=== PATIENT | female | born 1975 | race Caucasian/White ===

== ENCOUNTER 2019-02-14 15:36 | Outpatient (REF) | payer BC, SELFPAY ==
--- NOTE | 2019-02-14 15:30 | PAPFT_PTH ---
PATIENT: Brittany Gunn LOC: [facility] U#:[id number] AGE/SX: 43/F ROOM: RE02/14/[address]: KRISTAL Rojas : 1975 BED: DIS: 02/14/2019 SPEC #: [id number] RECD: 02/14/19 16:57 STATUS: DALJIT MCALLISTER #: [id number] MILLI: 02/14/19 15:[address]: Lexii Fuentes DEPT: [facility] Cytology RECD BY: Julianne Fisher ENTERED: 02/14/19 16:57 SP TYPE: PAPFT OTHR DR: Eda Clemons Tissues: 1 - CX/ENDOCX FOR PAP SMEARS Procedures: PAP THIN PREP/UVM Screening HPV DNA PROBE Comments: [id number]
== END 2019-02-14 15:56 ==
LOC: LBN 15:36
PROVIDERS: PCP Physician Assistant Medical; Visit Provider Nurse Practitioner Family
DX: Z12.4 Encounter for screening for malignant neoplasm of cervix (principal); Z11.51 Encounter for screening for human papillomavirus (HPV)
CPT/HCPCS: 88142; 87624

== ENCOUNTER 2019-02-14 15:42 | Outpatient (CLI) | payer BC, SELFPAY ==
[2019-02-14 17:17] LABS: TSH (W/Ref FT4) 1.02 uIU/mL (0.358-3.74)
== END 2019-02-14 16:02 ==
PROVIDERS: PCP Physician Assistant Medical; Visit Provider Nurse Practitioner Family
DX: N92.0 Excessive and frequent menstruation with regular cycle (principal)
CPT/HCPCS: 36415; 84443

== ENCOUNTER 2019-02-24 01:01 | Outpatient (CLI) | payer BC, SELFPAY ==
--- NOTE | 2019-02-24 06:39 | DI.US_ITS ---
SYMPTOM/DIAGNOSIS: MENORRHAGIA, DYSMENORRHEA N92.0 PELVIC ULTRASOUND: Transabdominal and transvaginal exams were performed. The exam is limited by the patient's body habitus. The uterus measures 6.8 x 3.7 x 5.6 cm. No fibroids are seen. The endometrial stripe measures 8 mm in thickness. Nabothian cysts are seen in the cervical region. The left ovary was not well seen but appears normal in size. A 2.1 cm in maximal dimension left ovarian cyst is identified. The right ovary is unremarkable. There is no free fluid or hydronephrosis. IMPRESSION: 2.1 cm left ovarian dominant follicle vs small cyst.
--- NOTE | 2019-02-24 11:30 | DI.MAMMO_ITS ---
SYMPTOM/DIAGNOSIS: SCREENING, Z12.31 MAMMOGRAMS: Mammograms were interpreted according to the usual protocol including computer analysis with CAD system, tomosynthesis and C view imaging. There are no prior comparison exams. The breasts are composed of fatty density tissue. Breast density, Category A. No suspicious masses or suspicious microcalcifications are seen. IMPRESSION: Category 1, negative mammogram. Yearly screening mammography is recommended. [facility] ASSESSMENT OF FINDINGS: Negative. Category 1. Patient will receive a letter notifying them of these results. BI-RAD category A. The breasts are almost entirely fatty.
== END 2019-02-24 01:21 ==
PROVIDERS: PCP Physician Assistant Medical; Visit Provider Nurse Practitioner Family
DX: Z12.31 Encounter for screening mammogram for malignant neoplasm of breast (principal); N92.0 Excessive and frequent menstruation with regular cycle; N94.6 Dysmenorrhea, unspecified; N83.292 Other ovarian cyst, left side
CPT/HCPCS: 77063; 77067; 76830; 76856

== ENCOUNTER 2019-10-21 12:43 | Outpatient (REF) | payer BC, SELFPAY ==
[2019-10-21 21:29] LABS: Anion Gap 10.9 mmol/L (3-11); BUN 6 mg/dL (7-18); CO2 26.1 mmol/L (21.0-32.0); CREATININE 0.79 mg/dL (0.55-1.02); Calcium 9.3 mg/dL (8.5-10.1); Chloride 104 mmol/L (98-107); Glucose 94 mg/dL (74-106); Potassium 4.8 mmol/L (3.5-5.1); Sodium 141 mmol/L (136-145)
== END 2019-10-21 13:03 ==
LOC: NCHCN 12:43
PROVIDERS: PCP Physician Assistant Medical; Visit Provider Physician Assistant Medical
DX: E87.6 Hypokalemia (principal); E87.1 Hypo-osmolality and hyponatremia
CPT/HCPCS: 80048

== ENCOUNTER 2019-10-21 22:18 | Observation (INO) | payer BC, SELFPAY ==
--- NOTE | 2019-10-21 22:31 | ED.GENADUL_ITS ---
Discharge Plan Disposition Patient Disposition: [facility] INPATIENT Condition: Poor Discharge Details Chief Complaint: PsychEval Clinical Impression: Suicidal ideations Primary Care Provider: Eda Clemons ED Provider: Valarie Somers Home Meds and New Rx's Prescriptions: No Action No Known Home Meds RF: 0 Medical Decision Making Patient is a pleasant 43-year-old female presents today with chief complaint of suicidal ideation. Patient reports that on September 19 of this year she witnessed a coworker suddenly from cardiac arrest. States that since that time she has progressively worsening in regards anxiety and depression. She denies having any anxiety or depression prior to this episode. Reports that initially, she was perseverating around thoughts of the woman passing away and gastroenterology not having been able to do more for her. However, she reports that now her thoughts are perseverative around the thoughts of herself or her family members dying. She states that she has not been able to sleep well since the time of the incident and is often awakened at 2 AM unable to go back to sleep. She has tried multiple medications as an outpatient and has been receiving counseling through primary care office. Despite this, her symptoms progressively worsening. She reports nonintentional weight loss of over 10 pounds over the past month reports greatly diminished appetite. States she was seen by her primary care this morning and they did discuss inpatient management. She was evaluated by [facility] human services. At that time, patient did not seem to be an imminent threat to herself and was discharged home with plan for her to begin trazodone at night to help with sleep. She is also tried Celexa and Ativan. On exam, patient does seem anxious. She seems to have overall good insight but I am concerned regarding her impulsivity. She is sounds to still be having thoughts of self-harm but she denies plan at this time. Patient also has progressively worsened to the point that she is now not able to function. She does not seem to find any flower in her life and I am concerned that she is at risk for suicide attempt. Patient was evaluated by mental health and they feel that inpatient admission is appropriate at this time for her progressive worsening with recent thoughts of suicidal ideation. Discussed inpatient management with the patient. She does seem very interested in this she has been failing outpatient management thus far. [facility], I did discuss the case with Dr. Miner who agrees to admission is asked that I place holding orders. Referrals have been sent to [facility] and [facility] which helps the patient will be able to transfer to appropriate facility tomorrow. All of her questions or concerns were addressed and she is in agreement this plan. HPI General Mode of arrival: ambulatory . Date/Time Provider Initiated Documentation: 10/21/19 22:31 . Limitations to Documentation: no limitations . Information obtained by: RN notes reviewed . History of Present Illness 43 year old F presents to the emergency department with the chief complaint of suicidal ideation, described as moderate (reports sudden onset of thoughts at 4PM, no plan), Patient started experiencing this hour(s) and it has been constant (improved somewhat with arrival here). No relieving factors improve symptom(s), No exacerbating factors reported . Patient notes no other symptoms.. Patient did receive the following treatments prior to arrival, other (took trazadone at 1999) Related Data Home Medications Medication Instructions Recorded Confirmed Unknown [No Known Home Meds] 02/14/19 10/21/19 Allergies Allergy/AdvReac Type Severity Reaction Status Date / Time No Known Allergies Allergy Verified 10/21/19 22:42 Review of Systems Constitutional Constitutional: Reports as per HPI, Denies chills, Denies fatigue, Denies fever(s), Denies headache(s) and Denies weakness Eyes Eyes: Denies change in vision ENT Ears, Nose, Mouth, and Throat: Denies headache(s) Cardiovascular Cardiovascular: Reports as per HPI, Denies chest pain, Denies lightheadedness, Denies dyspnea and Denies dyspnea on exertion Respiratory Respiratory: Reports as per HPI, Denies cough, Denies dyspnea and Denies dyspnea on exertion Gastrointestinal Gastrointestinal: Reports as per HPI, Denies abdominal pain, Denies change in bowel habits, Denies nausea and Denies vomiting Musculoskeletal Musculoskeletal: Denies abnormal gait Integumentary/Breasts Skin/Breast: Reports as per HPI and Denies rash Neurologic Neurologic: Denies abnormal movements, Denies abnormal speech, Denies abnormal gait, Denies headache(s), Denies paresthesias and Denies weakness Endocrine Endocrine: Denies fatigue [facility] Medical History Globus sensation (Acute 03/11/18) Obesity, unspecified (Acute 08/30/15) Surgical History section Cholecystectomy Social History (Updated 02/14/19 @ 15:42 by Lexii Fuentes NP) Smoking/Tobacco Use Status: Former Tobacco Use Quit Date: 09/10/19 Alcohol Intake: current Alcohol Intake frequency: a few times a month Drug use: Never Substance use type: marijuana current occupation: [employer] Do you feel safe at home: Yes Do you feel safe in your relationship?: Yes Exam Const General: cooperative, healthy appearing, comfortable, no acute distress, well developed, well groomed and anxious Nutritional Appearance: well nourished and overweight Orientation: alert and awake Eyes General: appearance normal, both eyes and all related structures Resp Effort & Inspection: normal respiratory effort, able to speak in complete sentences and no respiratory distress Auscultation: clear to auscultation bilaterally, no rales, no rhonchi and no wheezes Cardio Rate: regular rate Rhythm: regular rhythm Heart Sounds: S1 normal and S2 normal Skin General skin exam: no rashes or lesions noted Trauma: no lacerations or abrasions Neuro General: alert and awake Cognition: normal cognition Speech: speech normal Gait: normal gait Psych Appearance: grossly normal and well kempt Mental Status: mental status grossly normal Speech and Movement: speech and movement normal Mood: anxious mood Affect: sad Attitude: cooperative Thought Process: normal Thought Content: suicidality Insight: insight good Judgment: limited (patient seems impulsive)
[2019-10-21 23:23] VITALS: BP 122/82; PULSE 69; TEMP 37; O2SAT 99
[2019-10-21 23:38] LABS: Abs Immature Grans 0.02 k/cumm (0.0-0.09); Absolute Basophil Count 0.02 k/cumm (0.0-0.2); Absolute Eosinophil Count 0.05 k/cumm (0.0-0.7); Absolute Lymphocyte Count 2.66 k/cumm (1.2-3.4); Absolute Monocyte Count 0.64 k/cumm (0.11-0.7); Absolute Neutrophil Count 6.41 k/cumm (1.2-6.7); Basophils % 0.2; Eosinophils % 0.5; HCT 42.8 % (36.0-46.0); HGB 14.5 g/dL (12.0-15.5); Immature Grans % 0.2 %; Lymphocytes % 27.1; Mean Corp. HGB Concentration 33.9 g/dL (32.0-36.0); Mean Corpuscular Hemoglobin 29.4 pg (27.0-33.0); Mean Corpuscular Volume 86.8 fL (80-95); Mean Platelet Volume 11.4 fL (8.0-11.0); Monocytes % 6.5; Neutrophils % 65.5; Platelet Count 289 x1000/uL (130-400); RBC 4.93 m/cumm (4.00-5.20); RBC Distribution Width 12.8 % (11.7-14.6)
[2019-10-21 23:38] LABS: Bilirubin Negative (Negative); Blood Small (Negative); Clarity Clear (Clear); Glucose Negative (Negative); Ketones Negative (Negative); Leukocyte Esterase Negative (Negative); Nitrite Negative (Negative); Specific Gravity 1.015 (1.005-1.025); Urobilinogen 0.2 EU/dL (Up TO 0.2)
[2019-10-21 23:43] LABS: Bacteria Rare HPF (Negative); C & S Indicated? No; Casts Negative LPF (Negative); Crystals Negative HPF (Negative); Epithelial Cells Few HPF (Negative); Mucus Negative (Negative); WBC Negative HPF (0-5)
--- NOTE | 2019-10-21 23:44 | PDOC.CMSAFED ---
- If Service Date Differs Date of service: 10/21/19 Time of Service: 23:44 Care Management Safety Plan Brittany is a 43 year old female who resides with her and her teenage daughter. She works for [employer] where, on September 17, 2019, she witnessed the of one of her coworkers at work. Since then Brittany has struggled with perseverative thoughts about the and has felt as if she should have done more to try and save this coworker. Brittany reports difficulty sleeping at night, a lot of anxiety and fear of her family members dying, anhedonia, and a weight loss of 10 lbs over the past month or so. She sees a therapist at the [facility] and today her PCP started her on Trazodone. Brittany denies a history of suicidal ideation or psychiatric hospitalizations, but reports having suicidal thoughts this afternoon. She denies intent or plan. CM facilitated interdepartmental huddle with [facility] screener for safety planning considerations. Huddle participants: Elizabeth, [facility] crisis screeners, Valarie, ED provider, Ioana, nursing finishing room supervisor, CHARLES Rome, and DOTTY Logan. Referrals are being faxed to [facility], [facility], and [facility] for review and consideration. VOLUNTARY FOR INPATIENT PSYCHIATRIC STABILIZATION. Patient is appropriate in all interactions since arriving at [facility]; Pt has demonstrated appropriate coping and communication skills, has articulated his or her needs and concerns and is fully engaged during staff interactions. Safety plan has been established with patient, and care team, to adhere to patient goals, identify restrictions based on behavioral status, address nutrition, and determine allowed personal belongings, tools for hygiene and personal care. Determine level of activity including ambulation, level of supervision, visitors, and determine privileges based on behaviors and level of engagement by pt. SAFETY PLAN: 1. Will remain on suicide precautions. In Paper Clothes 2. Will remain in room under direct supervision of one-on-one staff at all times provided by [employer]; AVI, ERIC director of social services. 3. May have paper cups, plates, finger foods as well as a cardboard spoon with which to eat meals. 4. Follow [facility] Management of the Admitted Behavioral Health Patient policy. 5. Comfort bath system only. 6. No personal belongings 7. Visitors- and daughter are allowed to visit. 8. Activities: None currently. 9. Bathroom privileges 10. No phone privileges at this time. 11. Due to VOLUNTARY status, if patient wishes to leave [facility], the [facility] ammonia worker must be contacted to re-evaluate patient prior to patient exiting the building. Patient is currently voluntarily at [facility] and seeking inpatient admission when a bed becomes available. [facility] Frontline Financial Recruiter will continue seeking placement. Please contact the Software Test Engineer Water Pollution Specialist ([phone]) and [facility] Financial Recruiter ([phone]) for any needed changes in the Safety Plan. Safety plan has been provided to interdepartmental care team.
[2019-10-21 23:53] LABS: *AMPHETAMINES SCREEN URINE Negative (Negative); *BARBITURATES SCREEN URINE Negative (Negative); *BENZODIAZEPINES SCREEN URINE Negative (Negative); Cannabinoids THC Negative (Negative); Cocaine Screen,Urine Negative (Negative); METHADONE URINE SCREEN Negative (Negative); OPIATES URINE SCREEN Negative (Negative)
[2019-10-21 23:54] LABS: Tricyclic Antidepressants Negative (Negative)
[2019-10-21 23:55] LABS: Salicylate < 2.8 mg/dL (2.8-20.0)
[2019-10-21 23:58] LABS: Acetaminophen < 2 ug/mL (10-30)
[2019-10-21 23:59] LABS: ALT 15 U/L (14-59); AST 11 U/L (15-37); Albumin 3.7 g/dL (3.4-5.0); Alkaline Phosphatase 78 U/L (46-116); Anion Gap 12.8 mmol/L (3-11); BUN 6 mg/dL (7-18); Bilirubin, Total 0.5 mg/dL (0.2-1.0); CO2 23.2 mmol/L (21.0-32.0); CREATININE 0.81 mg/dL (0.55-1.02); Calcium 8.6 mg/dL (8.5-10.1); Chloride 103 mmol/L (98-107); ETHANOL BLOOD 6.3 mg/dL (<3); Glucose 105 mg/dL (74-106); Potassium 3.6 mmol/L (3.5-5.1); Sodium 139 mmol/L (136-145); TSH 0.63 uIU/mL (0.36-3.74); Total Protein 6.8 g/dL (6.4-8.2)
[2019-10-22 00:13] LABS: HCG Qual (Urine) Negative
[2019-10-22 00:16] VITALS: BP 122/82; PULSE 69; TEMP 37; O2SAT 99
[2019-10-22 00:36] VITALS: BP 111/76; PULSE 58; RESP 17; TEMP 36.9; O2SAT 100
--- NOTE | 2019-10-22 05:50 | W.PM.HP.N ---
Date of service: 10/22/19 Time of Service: 05:51 Assessment and Plan Assessment and plan (1) Suicidal ideations: Status: Acute Assessment and plan: Admitted for placement to a psychiatric facility. She has a clinical patient observer. She has a suicide plan. History of Present Illness History of Present Illness Chief Complaint: Suicidal ideation Narrative: This is a 43-year-old woman that presented to the emergency room today concerned about anxiety and contemplating suicide. On 09/19/2019 she witnessed a coworker passing away from a cardiac arrest. Since that time she has had progressively worsening anxiety and depression. In the emergency room she voiced suicidal ideation. She is agreed to voluntarily be placed in a psychiatric facility. She is admitted for placement. Review of Systems Narrative: She offers no physical complaints [facility] Medical History Globus sensation (Acute 03/11/18) Obesity, unspecified (Acute 08/30/15) Surgical History section Cholecystectomy Family History Father Heart disease Social History Smoking/Tobacco Use Status: Former Tobacco Use Quit Date: 09/10/19 Alcohol Intake: current Alcohol Intake frequency: a few times a month Drug use: Never Substance use type: marijuana current occupation: [employer] Do you feel safe at home: Yes Do you feel safe in your relationship?: Yes Meds Home Medications and Allergies Home Medications Medication Instructions Recorded Confirmed Type Unknown [No Known Home Meds] 02/14/19 10/21/19 History Allergies Allergy/AdvReac Type Severity Reaction Status Date / Time No Known Allergies Allergy Verified 10/21/19 22:42 Exam Narrative Exam Narrative: On exam she is very pleasant and smiling. She is appropriate and answers questions well. She is moving all extremities without difficulty. Her lung exam is clear to auscultation bilaterally. Her heart sounds are regular without evidence of murmur. She had no abdominal tenderness. Lower extremities showed no evidence of edema, warm and well perfused. Results Labs Result diagrams: 10/21/19 23:30 10/21/19 23:30 Labs: Laboratory Results - last 24 hr 10/21/19 10/21/19 10/21/19 22:30 22:30 23:30 WBC RBC Hgb Hct MCV MCH MCHC RDW Plt Count MPV Immature Gran % Neutrophils % Lymphocytes % Monocytes % Eosinophils % Basophils % Absolute Neutrophils Absolute Lymphocytes Absolute Monocytes Absolute Eosinophils Absolute Basophils Sodium 139 Potassium 3.6 D Chloride 103 Carbon Dioxide 23.2 Anion Gap 12.8 H BUN 6 L Creatinine 0.81 Estimated GFR/1.73 m2 >= 60.00 Glucose 105 Calcium 8.6 Total Bilirubin 0.5 AST 11 L ALT 15 Alkaline Phosphatase 78 Total Protein 6.8 Albumin 3.7 TSH 0.63 Urine Color Yellow Urine Clarity Clear Urine pH 6.0 Ur Specific [place] 1.015 Urine Protein Negative Urine Ketones Negative Urine Blood Small H Urine Nitrite Negative Urine Bilirubin Negative Urine Urobilinogen 0.2 Ur Leukocyte Esterase Negative Urine RBC 3-5 H Urine WBC Negative Ur Epithelial Cells Few Urine Crystals Negative Urine Bacteria Rare Urine Casts Negative Urine Mucus Negative Ur Culture Indicated? No Urine Glucose Negative Urine HCG, Qual Salicylates Urine Opiates Screen Negative Urine Methadone Screen Negative Acetaminophen Ur Barbiturates Screen Negative Ur Tricyclics Screen Negative Ur Amphetamines Screen Negative U Benzodiazepines Scrn Negative Urine Cocaine Screen Negative Ur THC Screen Negative Ethyl Alcohol 6.3 10/21/19 10/21/19 10/22/19 23:30 23:30 22:30 WBC 9.80 RBC 4.93 Hgb 14.5 Hct 42.8 MCV 86.8 MCH 29.4 MCHC 33.9 RDW 12.8 Plt Count 289 MPV 11.4 H Immature Gran % 0.2 Neutrophils % 65.5 Lymphocytes % 27.1 Monocytes % 6.5 Eosinophils % 0.5 Basophils % 0.2 Absolute Neutrophils 6.41 Absolute Lymphocytes 2.66 Absolute Monocytes 0.64 Absolute Eosinophils 0.05 Absolute Basophils 0.02 Sodium Potassium Chloride Carbon Dioxide Anion Gap BUN Creatinine Estimated GFR/1.73 m2 Glucose Calcium Total Bilirubin AST ALT Alkaline Phosphatase Total Protein Albumin TSH Urine Color Urine Clarity Urine pH Ur Specific [place] Urine Protein Urine Ketones Urine Blood Urine Nitrite Urine Bilirubin Urine Urobilinogen Ur Leukocyte Esterase Urine RBC Urine WBC Ur Epithelial Cells Urine Crystals Urine Bacteria Urine Casts Urine Mucus Ur Culture Indicated? Urine Glucose Urine HCG, Qual Negative Salicylates < 2.8 Urine Opiates Screen Urine Methadone Screen Acetaminophen < 2 Ur Barbiturates Screen Ur Tricyclics Screen Ur Amphetamines Screen U Benzodiazepines Scrn Urine Cocaine Screen Ur THC Screen Ethyl Alcohol Last Vital Signs Temp 36.9 C 10/22/19 00:36 Pulse 58 L 10/22/19 00:36 Resp 17 10/22/19 00:36 BP 111/76 10/22/19 00:36 Pulse Ox 100 10/22/19 00:36
[2019-10-22] MEDS: Mylanta Suspension 30 ML CUP PO (06:27)
[2019-10-22 08:28] VITALS: BP 122/86; PULSE 88; RESP 16; TEMP 37.1; O2SAT 99
--- NOTE | 2019-10-22 09:28 | PDOC.CMPRO ---
Care Management Progress Note Brittany is a 43 year old female who resides with her , Ras and her teenage daughter. She works for [employer] where, she witnessed the of one of her coworkers while working. Since then Brittany has struggled with pervasive thoughts about the and has felt as if she should have done more to try and save this coworker. Brittany reports difficulty sleeping at night, anxiety, fear of her family members dying, anhedonia, and a weight loss of 10 lbs over the past month or so. Referrals are being faxed to [facility], [facility], and [facility] for review and consideration. CM discussed care planning with Brittany, Maria Esther; RN, Candy; JUDAH, BEE Hdz and EUGENIA Gold. VOLUNTARY FOR INPATIENT PSYCHIATRIC STABILIZATION. Patient is appropriate in all interactions since arriving at [facility]; Pt has demonstrated appropriate coping and communication skills, has articulated his or her needs and concerns and is fully engaged during staff interactions. Safety plan has been established with patient, and care team, to adhere to patient goals, identify restrictions based on behavioral status, address nutrition, and determine allowed personal belongings, tools for hygiene and personal care. Determine level of activity including ambulation, level of supervision, visitors, and determine privileges based on behaviors and level of engagement by pt. SAFETY PLAN: 1. Will remain on suicide precautions. In Paper Clothes 2. Will remain in direct supervision of one-on-one staff at all times provided by [employer]PSO; AVI, FOUNDER AND CHIEF EXECUTIVE OFFICER gambling counsellor. 3. May have paper cups, plates, finger foods as well as a cardboard spoon with which to eat meals. 4. Follow [facility] Management of the Admitted Behavioral Health Patient policy. 5. Permitted to utilize shower room with escort. 6. No personal belongings 7. Visitors- Ras Gunn and daughter (16 yo) are allowed to visit. 8. Activities: soft cart items permitted per RN discretion. 9. Bathroom available in room without limitation. 10. Phone contact limited to legal and incoming calls on cordless facilitated by [facility] staff. Ras reports he will call around lunch time. 11. Due to VOLUNTARY status, if patient wishes to leave [facility], the [facility] fruit i farmworker must be contacted to re-evaluate patient prior to patient exiting the building. Patient is currently voluntarily at [facility] and seeking inpatient admission when a bed becomes available. [facility] Frontline Loan Servicing Officer will continue seeking placement. Please contact the [employer] Fun House Operator ([phone]) and [facility] Loan Servicing Officer ([phone]) for any needed changes in the Safety Plan. Safety plan has been provided to interdepartmental care team.
--- NOTE | 2019-10-22 10:28 | PDOC.MHCN_ITS ---
Mental Health Crisis Note Presenting Issue How did you arrive at the ED and why did you come: Clshania arrived at ER because of extreme anxiety, possible panic attack. Precipitating Factors Clt denies any SI or HI but these possible panic attacks cause her to have ex treme anxiety. The clt witnessed the of a friend and coworker. The coworker of a heart attack. The clt held her coworker's hand as she passed. Clt has feeling that she should've done more. I pointed out to her that she didn't know CPI but the clt did get help and returned to her friend's side. The clt had known the coworker for about 9yrs and considered her a friend. The clt has feeling of extreme dread that something bad will happen to her family members. The clt will feel like she is blanking out accompanied with a feeling of light-headedness. These attacks can come in a matter of of seconds and without warning. They are impacting negatively on her quality of life. Disposition BEHAVIOR: The clt's behavior is cooperative and engaged. EYE CONTACT: Eye contact is good. MOOD: The clt has a pleasant mood. AFFECT: Pleasant APPETITE: Good SLEEP(trouble falling/staying asleep: Serious deregulation regarding sleep. The clt has a hard time getting to sleep. She's fearful that something will happen to her family. Plan The clt is to get the clt to a therapeutic psych unit. Hopefully, a unit that has EMDR and CBT to assist her with processing this anxiety. She witnessed her coworker's heart attack at 10/06/2019, so it is still fairly fresh.
[2019-10-22] MEDS: LORazepam 1 MG TAB PO (10:56)
--- NOTE | 2019-10-22 13:16 | DSE_ITS ---
Date of service: 10/22/19 Time of Service: 13:16 DS: Diagnosis Discharge Diagnosis (1) Suicidal ideations: Status: Acute Discharge Plan Disposition Patient Disposition: [facility]NOTE 3] Condition: Poor Discharge Details Chief Complaint: PsychEval Clinical Impression: Suicidal ideations Reason For Visit: SUICIDAL IDEATION Admit Date/Time: 10/21/19 23:52 Admit Provider: Ras Miner Attending Provider: Ras Miner Primary Care Provider: Eda Clemons [facility] Hospital Course: This is a 43-year-old female patient with no significant past medical history who presented to the emergency department with severe anxiety/panic attacks depression with suicidal ideation 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 She has since complained of severe panic attacks with fears of harm to her family. She feels overwhelmed by her feelings she has no specific plan she was screened by mental health and has agreed to a voluntary inpatient psychiatric admission for management of her symptoms. Her primary care provider had started her on trazodone. Medically she has been cleared and was referred to the medical surgical unit while case management and mental health obtained a bed for her. Since being hospitalized she has been cooperative and pleasant. There have been no behavioral issues. A bed has been secured at [facility] and she is being transported by ground team. She has remained medically stable is hemodynamically stable and with no complaints physically Home Meds and New Rx's Prescriptions: No Action No Known Home Meds RF: 0 Discharge Instructions Instructions: Suicide Prevention for Adults (DC) Additional Instructions: Presented to [facility] as arranged for inpatient psychiatric treatment of major depression with suicidal ideation and panic disorder Activity:: Activity as Tolerated Equipment/Supplies:: No Equipment Needed Diet:: As Tolerated Discharge Orders Discharge Orders: Discharge Order (Routine); Ordered 10/22/19 Ordered By: Tiffany Kahn DS: Summary Status at Discharge Functional status at discharge: independent ambulation Overall status at discharge: patient is not back to baseline Mental Status: mental status grossly normal Speech and Movement: speech and movement normal Mood: congruent mood Affect: normal affect Exam Const General: cooperative, healthy appearing, comfortable and no acute distress Nutritional Appearance: obese Orientation: alert, awake and oriented x3 HENMT Head: normal to inspection, normocephalic and atraumatic Mouth: oral mucosae normal Resp Effort & Inspection: normal respiratory effort Auscultation: clear to auscultation bilaterally Cardio Rate: regular rate Rhythm: regular rhythm GI Inspection: normal to inspection Palpation: soft Auscultation: normal bowel sounds Skin General skin exam: no rashes or lesions noted Neuro General: alert, awake and oriented x3 Extrem General: normal to inspection and full ROM Psych Appearance: grossly normal Mental Status: mental status grossly normal Speech and Movement: speech and movement normal Mood: congruent mood Affect: normal affect Attitude: cooperative Thought Process: illogical Thought Content: phobias and suicidality Insight: fair Judgment: judgment good DS: Data Vitals/I&O Vitals and I&O: Vital Signs Temperature 37.1 C 10/22/19 08:28 Temperature Source Tympanic 10/22/19 08:28 Pulse 88 10/22/19 08:28 Pulse Rhythm Regular 10/22/19 07:25 Respiratory Rate 16 10/22/19 08:28 Respiratory Effort Non-Labored 10/22/19 07:25 Respiratory Depth Normal 10/22/19 07:25 Respiratory Pattern Normal 10/22/19 07:25 Blood Pressure 122/86 10/22/19 08:28 Pulse Oximetry 99 10/22/19 08:28 Oxygen Delivery Method Room Air 10/22/19 08:28 Oxygen Flow Rate 0 10/22/19 08:28 Pain Level 0 10/22/19 08:28 Intake & Output 10/21/19 10/22/19 10/22/19 23:59 11:59 23:59 Intake Total 240 / 240 Balance 240 / 240 Weight 109.769 kg Intake: Oral 240 / 240 Data Completed and Pending Labs on day of discharge: Labs from last 24 hours 10/22/19 10/21/19 10/21/19 22:30 23:30 23:30 WBC 9.80 RBC 4.93 Hgb 14.5 Hct 42.8 MCV 86.8 MCH 29.4 MCHC 33.9 RDW 12.8 Plt Count 289 MPV 11.4 H Immature Gran % 0.2 Neutrophils % 65.5 Lymphocytes % 27.1 Monocytes % 6.5 Eosinophils % 0.5 Basophils % 0.2 Absolute Neutrophils 6.41 Absolute Lymphocytes 2.66 Absolute Monocytes 0.64 Absolute Eosinophils 0.05 Absolute Basophils 0.02 Sodium Potassium Chloride Carbon Dioxide Anion Gap BUN Creatinine Estimated GFR/1.73 m2 Glucose Calcium Total Bilirubin AST ALT Alkaline Phosphatase Total Protein Albumin TSH Urine Color Urine Clarity Urine pH Ur Specific Sutton Urine Protein Urine Ketones Urine Blood Urine Nitrite Urine Bilirubin Urine Urobilinogen Ur Leukocyte Esterase Urine RBC Urine WBC Ur Epithelial Cells Urine Crystals Urine Bacteria Urine Casts Urine Mucus Ur Culture Indicated? Urine Glucose Urine HCG, Qual Negative Salicylates < 2.8 Urine Opiates Screen Urine Methadone Screen Acetaminophen < 2 Ur Barbiturates Screen Ur Tricyclics Screen Ur Amphetamines Screen U Benzodiazepines Scrn Urine Cocaine Screen Ur THC Screen Ethyl Alcohol 10/21/19 10/21/19 10/21/19 23:30 22:30 22:30 WBC RBC Hgb Hct MCV MCH MCHC RDW Plt Count MPV Immature Gran % Neutrophils % Lymphocytes % Monocytes % Eosinophils % Basophils % Absolute Neutrophils Absolute Lymphocytes Absolute Monocytes Absolute Eosinophils Absolute Basophils Sodium 139 Potassium 3.6 D Chloride 103 Carbon Dioxide 23.2 Anion Gap 12.8 H BUN 6 L Creatinine 0.81 Estimated GFR/1.73 m2 >= 60.00 Glucose 105 Calcium 8.6 Total Bilirubin 0.5 AST 11 L ALT 15 Alkaline Phosphatase 78 Total Protein 6.8 Albumin 3.7 TSH 0.63 Urine Color Yellow Urine Clarity Clear Urine pH 6.0 Ur Specific Sutton 1.015 Urine Protein Negative Urine Ketones Negative Urine Blood Small H Urine Nitrite Negative Urine Bilirubin Negative Urine Urobilinogen 0.2 Ur Leukocyte Esterase Negative Urine RBC 3-5 H Urine WBC Negative Ur Epithelial Cells Few Urine Crystals Negative Urine Bacteria Rare Urine Casts Negative Urine Mucus Negative Ur Culture Indicated? No Urine Glucose Negative Urine HCG, Qual Salicylates Urine Opiates Screen Negative Urine Methadone Screen Negative Acetaminophen Ur Barbiturates Screen Negative Ur Tricyclics Screen Negative Ur Amphetamines Screen Negative U Benzodiazepines Scrn Negative Urine Cocaine Screen Negative Ur THC Screen Negative Ethyl Alcohol 6.3 PFSH Medical History Globus sensation (Acute 03/11/18) Obesity, unspecified (Acute 08/30/15) Surgical History section Cholecystectomy Family History Father Heart disease Social History Smoking/Tobacco Use Status: Former Tobacco Use Quit Date: 09/10/19 Alcohol Intake: current Alcohol Intake frequency: a few times a month Drug use: Never Substance use type: marijuana current occupation: [employer] Do you feel safe at home: Yes Do you feel safe in your relationship?: Yes
--- NOTE | 2019-10-22 13:27 | NUR.NOTE ---
Nursing Note: Report given to nurse Williamson at [facility]. All questions answered
--- NOTE | 2019-10-22 14:32 | PDOC.CMDIS ---
LACE Index Scoring Tool - Questions: Length of Stay (in days): 1 Acuity (Admit via E.D.?): Yes E.D. 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 Patient/Family Education Needs: Review discharge instructions, discuss Ask Me Three. - MH Services (Omit if N/A) Current MH Services: Psychiatric Inp ([facility])
== END 2019-10-22 13:50 | disposition short-term general hospital (02) ==
LOC: ER 10-22 00:21 → MS 10-22 00:22
PROVIDERS: Admitting Provider Family Medicine; Emergency Provider Physician Assistant; PCP Physician Assistant Medical; Visit Provider Nurse Practitioner Acute Care
DX: F41.0 Panic disorder [episodic paroxysmal anxiety] (principal); R45.851 Suicidal ideations; F32.9 Major depressive disorder, single episode, unspecified; Z75.1 Person awaiting admission to adequate facility elsewhere
CPT/HCPCS: 36415; 80053; 80307; 99217; 99219; 99285; 80320; 80329; 81003; 81015; 81025; 84443; 85025; 99284; G0378

== ENCOUNTER 2020-06-23 16:07 | Outpatient (REF) | payer BC, SELFPAY ==
--- NOTE | 2020-06-23 16:00 | ENDOMET_PTH ---
PATIENT: Brittany Gunn LOC: [facility] U#:[id number] AGE/SX: 44/F ROOM: RE06/23/[address]: Yolande Price : 1975 BED: DIS: 06/23/2020 SPEC #: [id number] RECD: 06/23/20 17:04 STATUS: DALJIT REQ #: [id number] MILLI: 06/23/20 16:[address]: Yolande Price DEPT: Surgical Specimen RECD BY: Julianne Fisher ENTERED: 06/23/20 17:06 SP TYPE: Endomet OTHR DR: Eda Clemons Tissues: 1 - ENDOMETRIUM BX/SHANTELL Procedures: GROSS AND MICRO LEVEL 4 Comments: [id number]
== END 2020-06-23 16:27 ==
LOC: LBN 16:07
PROVIDERS: PCP Physician Assistant Medical; Visit Provider Obstetrics & Gynecology Gynecology
DX: N93.9 Abnormal uterine and vaginal bleeding, unspecified (principal)
CPT/HCPCS: 88305

== ENCOUNTER 2020-06-28 03:20 | Outpatient (CLI) | payer BC, SELFPAY ==
[2020-06-28 14:55] LABS: HCT 40.4 % (36.0-46.0); HGB 13.1 g/dL (11.2-15.7); MCH 29.2 pg (27.0-33.0); MCHC 32.4 % (32.0-36.0); MCV 90.2 fL (80-95); MPV 11.6 fL (8.0-11.0); Platelet Count 259 10^3/uL (130-400); RBC 4.48 10^6/uL (3.93-5.22); RDW 12.7 % (11.7-14.6); RDW-SD 42.2 fL; WBC 9.37 10^3/uL (4.4-10.8)
[2020-06-28 17:03] LABS: HCG Quant, Pregnancy < 1 mIU/mL (1-3)
[2020-06-30 18:01] LABS: COVID-19 RT-PCR Result NEGATIVE (Negative)
== END 2020-06-28 03:40 ==
PROVIDERS: PCP Physician Assistant Medical; Visit Provider Obstetrics & Gynecology Gynecology
DX: N93.9 Abnormal uterine and vaginal bleeding, unspecified (principal); Z11.59 Encounter for screening for other viral diseases; Z01.818 Encounter for other preprocedural examination; Z01.812 Encounter for preprocedural laboratory examination
CPT/HCPCS: 36415; 85027; 86850; 86900; 86901; U0003; 84702

== ENCOUNTER 2020-07-01 07:18 | Day surgery (SDC) | payer BC, SELFPAY ==
[2020-07-01] VITALS (7 sets, daily range): BP systolic 115–131; BP diastolic 63–83; PULSE 56–91; RESP 14–20; TEMP 36.1–36.9; O2SAT 96–99
[2020-07-01] MEDS: Lactated Ringers 1,000 ML 125 ML IV (08:09)
[2020-07-01] MEDS: Bupivacaine 0.25% Pres-Free 30 ML VIAL (09:14)
--- NOTE | 2020-07-01 10:11 | W.PM.DSUDISC ---
Discharge Plan Disposition Patient Disposition: HOME Condition: Good Discharge Details Attending Provider: Yolande Price Primary Care Provider: Eda Clemons Home Meds and New Rx's Prescriptions: No Action Probiotic 10 billion cell Capsule 10,000 mmu cells PO DAILY RF: 0 Discharge Instructions Additional Instructions: You will have watery discharge for the next 4 weeks. Keep your post operative appointment with Dr. Price at [facility] Stand Alone Forms: DSU Post Gynecology Surgery Activity:: Activity as Tolerated Diet:: As Tolerated Discharge Orders Discharge Orders: Discharge Order (Routine); Ordered 07/01/20 Ordered By: Yolande Price DS: Diagnosis Discharge Diagnosis (1) History of endometrial ablation: Status: Acute Asessment and Plan: 07/01/20 Hydrothermal endometrial ablation (2) Abnormal uterine bleeding (AUB): Status: Acute
--- NOTE | 2020-07-01 10:17 | W.PM.OP ---
Date of service: 07/01/20 Time of Service: 10:17 Operative Note Operative Note DATE OF PROCEDURE: 07/01/20 PRE-OP DIAGNOSIS: abnormal uterine bleeding POST-OP DIAGNOSIS: same PROCEDURE: Hydrothermal endometrial ablation SURGEON: Yolande Price ANESTHESIA: KIRAN ESTIMATED BLOOD LOSS: 0 PATHOLOGY: none sent COMPLICATIONS: None Patient was transported to: PACU Patient's condition: stable Indications: 44yo female who has experienced approximately a year of regular heavy monthly menses. She reports occasional dysmenorrhea associated with the passage of large clots and interference with activities of daily living. Declines hormonal treatment for menorrhagia. Not interested in a Mirena IUD. Findings: Nl appearing endometrial cavity, no intracavitary filling defects. Procedure Description: Patient was brought to the operating room where she was placed in the dorsal supine position and laryngeal mask anesthesia was administered without difficulty. Patient was then placed in the dorsal lithotomy position in [facility] stirrups. She was then prepped and draped in the usual sterile fashion and a surgical timeout was performed. A bivalve speculum was placed into the vagina and the anterior lip of the cervix was infiltrated with 1 cc of 0.25% Marcaine without epinephrine. The anterior lip of the cervix was then grasped with a single-tooth tenaculum and a paracervical block was then performed using approximately 2 cc of0.25% Marcaine without epinephrine. The cervical os was then sequentially dilated to a maximum of 16 Stephen. The hysteroscope with hydrothermal attachment was then inserted into the cervical os and the uterine cavity assessed with a diagnostic hysteroscopy using normal saline as the distention medium. An active cavity assessment was then performed and was successful and the had a thermal ablation sequence was initiated and completed in the allotted time. During the procedure the endometrial cavity was visualized and appeared to have good treatment effect. After a 2-minute cooling down interval another assessment of the uterine cavity showed excellent treatment effect in both uterine cornua and down to the lower uterine segment. The instruments removed the patient vagina tenaculum site was noted to be hemostatic. She was placed in the dorsal supine position successfully awakened extubated transferred recovery in stable condition
[2020-07-01] MEDS: oxyCODONE 5 mg/Acetaminophen 325 mg TAB PO ×2 (10:37→10:58)
== END 2020-07-01 11:50 | disposition home or self-care (01) ==
PROVIDERS: PCP Physician Assistant Medical; Visit Provider Obstetrics & Gynecology Gynecology
PROC: (CPT 58353; principal; 2020-07-01 08:45)
DX: N93.9 Abnormal uterine and vaginal bleeding, unspecified (principal)
CPT/HCPCS: 58563; J1100; J1885; J2001; J2405

== ENCOUNTER 2020-09-01 11:20 | Outpatient (REF) | payer BC, SELFPAY ==
[2020-09-01 20:47] LABS: ALT 27 U/L (14-59); AST 18 U/L (15-37); Albumin 3.8 g/dL (3.4-5.0); Alkaline Phosphatase 83 U/L (46-116); Anion Gap 5.7 mmol/L (3-11); BUN 14 mg/dL (7-18); Bilirubin, Total 0.4 mg/dL (0.2-1.0); CO2 28.3 mmol/L (21.0-32.0); Calcium 8.7 mg/dL (8.5-10.1); Calculated LDL 108 mg/dL (<100); Chloride 105 mmol/L (98-107); Cholesterol 201 mg/dL (<200); Glucose 92 mg/dL (74-106); HDL Cholesterol 74 mg/dL (40-60); Potassium 5.3 mmol/L (3.5-5.1); Sodium 139 mmol/L (136-145); Total Protein 6.6 g/dL (6.4-8.2); Triglyceride 95 mg/dL (<150)
== END 2020-09-01 11:40 ==
LOC: NCHCN 11:20
PROVIDERS: PCP Physician Assistant Medical; Visit Provider Physician Assistant Medical
DX: Z00.00 Encounter for general adult medical examination without abnormal findings (principal); Z13.220 Encounter for screening for lipoid disorders; Z13.228 Encounter for screening for other metabolic disorders
CPT/HCPCS: 80053; 80061

== ENCOUNTER 2020-10-15 19:46 | Outpatient (REF) | payer BC, SELFPAY ==
[2020-10-15 16:15] LABS: Hemoglobin A1C 5.5 % (<5.7)
[2020-10-15 16:22] LABS: TSH (W/Ref FT4) 0.72 uIU/mL (0.36-3.74)
== END 2020-10-15 19:47 | disposition home or self-care (01) ==
LOC: NCHCN 19:46
PROVIDERS: PCP Physician Assistant Medical; Visit Provider Physician Assistant Medical
DX: R63.5 Abnormal weight gain (principal)
CPT/HCPCS: 83036; 84443

== ENCOUNTER 2021-02-26 00:12 | Outpatient (CLI) | payer BC, SELFPAY ==
--- NOTE | 2021-02-25 | DI.RAD_ITS ---
Exam(s) XR LUMBAR SPINE COMPLETE EXAM: XR LUMBAR SPINE COMPLETE CLINICAL HISTORY: LOW BACK PAIN M54.5. TECHNIQUE: 2D digital imaging was performed. COMPARISON: No exams were available for comparison FINDINGS: There is no evidence of fracture nor listhesis. There is moderate disc space narrowing at at L2-3 an d L3-4 levels and mild disc space narrowing at the other levels. Small Schmorl's node invagination i n the inferior endplate of L2 is noted. There is no facet arthropathy. There is mild scoliosis conv ex left. Epicenter is at L3-4 level where there is more significant narrowing on the right side of t he disc space than the left side. Sacroiliac joints appear unremarkable. Signature IMPRESSION: DATA REPOSITORY: RADIATION DOSE DELIVERED:
== END 2021-02-26 00:32 ==
PROVIDERS: PCP Physician Assistant Medical; Visit Provider Physician Assistant Medical
DX: M54.5 Low back pain (principal); M51.36 Other intervertebral disc degeneration, lumbar region
CPT/HCPCS: 72110

== ENCOUNTER 2021-03-18 10:13 | Observation (INO) | payer BC, SELFPAY ==
[2021-03-18] VITALS (39 sets, daily range): BP systolic 110–148; BP diastolic 53–105; PULSE 55–92; RESP 10–22; TEMP 36.1–37; O2SAT 94–100
--- NOTE | 2021-03-18 10:15 | RT.EKG_ITS ---
APPROVED REPORT Exam: Resting ECG Reason for Exam: chest pain Patient Location: E HR:79 bpm ECG Measurements Heart Rate 79 AXIS IN 137 P 16 QRSd 81 QRS 54 QT 352 T 15 QTc 404 Conclusion Sinus rhythm...normal P axis, V-rate 60- 99 Anterior infarct, old...Q >40mS, abnormal ST-T, V2-V5
[2021-03-18 10:40] LABS: Abs Immature Grans 0.02 10^3/uL (0.0-0.06); Absolute Basophil Count 0.02 10^3/uL (0.0-0.2); Absolute Eosinophil Count 0.06 10^3/uL (0.0-0.7); Absolute Lymphocyte Count 1.62 10^3/uL (1.2-3.4); Absolute Monocyte Count 0.47 10^3/uL (0.1-0.8); Basophils % 0.3; Eosinophils % 0.8; HCT 41.8 % (36.0-46.0); HGB 13.5 g/dL (11.2-15.7); Immature Grans % 0.3; Lymphocytes % 20.3; MCH 29.2 pg (27.0-33.0); MCHC 32.3 % (32.0-36.0); MCV 90.5 fL (80-95); MPV 11.4 fL (8.0-11.0); Monocytes % 5.9; Neutrophils % 72.4; Nucleated RBC 0 %; Platelet Count 250 10^3/uL (130-400); RBC 4.62 10^6/uL (3.93-5.22); RDW 12.8 % (11.7-14.6); RDW-SD 42.3 fL; WBC 7.99 10^3/uL (4.4-10.8)
[2021-03-18] MEDS: FAMOTIDINE 20 MG/50 ML BAG 200 MG IVPB (10:43)
--- NOTE | 2021-03-18 10:45 | DI.RAD_ITS ---
Exam(s) XR CHEST 2V PA LATERAL EXAM: XR CHEST 2V PA LATERAL CLINICAL HISTORY: chest pain TECHNIQUE: 2D digital imaging was performed. COMPARISON: No exams were available for comparison FINDINGS: MEDIASTINUM: Normal. HEART: Normal. PULMONARY VASCULATURE: Normal. LUNGS: Clear. PLEURAL SPACE: No pleural effusion or pneumothorax. BONE:Unremarkable for age. IMPRESSION: No acute abnormality. DATA REPOSITORY: RADIATION DOSE DELIVERED:
--- NOTE | 2021-03-18 10:51 | ED.GENADUL_ITS ---
Discharge Plan Disposition Condition: Improving Discharge Details Chief Complaint: Chest Pain Admit Date/Time: 03/18/21 13:17 Admit Provider: Ras Miner Attending Provider: Ras Miner Primary Care Provider: Yue Johnson ED Provider: Adama Rubi Discharge Instructions Activity:: Activity as Tolerated Equipment/Supplies:: No Equipment Needed Diet:: As Tolerated Discharge Orders Discharge Orders: Discharge Order (Routine); Ordered 03/19/21 Ordered By: Lyndsay Majano Discharge Data Discharge Date/Time-TO BE ENTERED AT DEPARTURE: 03/18/21 13:48 Medical Decision Making 45-year-old female with history of obesity, anxiety disorder, positive family history for coronary artery disease, here with chest pain that started this morning with an episode of diaphoresis and nausea. Patient is currently saturating well with no respiratory distress. Hemodynamically stable. Consider ACS. Screening ECG was reviewed and interpreted by me: Please see report, 79 bpm, normal axis, no STEMI, nondiagnostic. Will check troponin and plan to trend. PERC applies. Patient is concerned that presentation may be related to anxiety. I will give Xanax 0.25 mg. --Initial labs reviewed: Troponin negative. Chest x-ray interpreted by radiologist. Patient reassessed and notes Xanax did help with anxiety she feels much better. She continues to have some intermittent chest discomfort and also notes persistent pain in her right neck. I will give nitroglycerin sublingual and a spirin 325 and reassess. Delta troponin pending, plan for hospitalization. Imaging Data Radiologic Study: Imaging: X-Ray Radiologist's impression: FINDINGS: MEDIASTINUM: Normal. HEART: Normal. PULMONARY VASCULATURE: Normal. LUNGS: Clear. PLEURAL SPACE: No pleural effusion or pneumothorax. BONE:Unremarkable for age. IMPRESSION: No acute abnormality. Lab Data Lab results reviewed: Yes I reviewed the patient's lab results. HPI General Mode of arrival: ambulatory . Date/Time Provider Initiated Documentation: 03/18/21 10:16 . Limitations to Documentation: no limitations . Information obtained by: patient . HPI Narrative: 45-year-old female with history of obesity, former smoker, presents with chief complaint of chest pain. Patient notes this morning she got out of shower and had an episode of diaphoresis and nausea. She then developed chest pain. Pain described as a intermittent sharp and sometimes pressure sensation left retrosternal and radiating to left anterior chest as well as in her right neck. Pain is been mild, constant since onset over the past couple hours. She denies associted shortness of breath, leg swelling or calf pain. Related Data Home Medications Medication Instructions Recorded Confirmed Probiotic 10,000 mmu cells PO DAILY 06/28/20 03/18/21 gabapentin 600 mg PO QHS 03/18/21 03/18/21 hydroxyzine HCl 25 mg PO DAILY PRN 03/18/21 03/18/21 mirtazapine 7.5 mg PO DAILY PRN 03/18/21 03/18/21 Allergies Allergy/AdvReac Type Severity Reaction Status Date / Time trazodone AdvReac Mild Other (See Verified 03/18/21 10:21 Comment) SSRIs AdvReac Severe Other (See Uncoded 03/18/21 10:21 Comment) General Stated Complaint: Chest Pain JAVIER: 3 Review of Systems All systems reviewed & are unremarkable except as noted in HPI and below Constitutional Constitutional: Denies fever(s) Cardiovascular Cardiovascular: Reports as per HPI and Reports chest pain [facility] Medical History Globus sensation (03/11/18) Obesity, unspecified (08/30/15) Surgical History section Cholecystectomy History of surgery on left wrist History of tonsillectomy Family History Father Heart disease Social History Smoking/Tobacco Use Status: Former Tobacco Use Quit Date: 09/10/19 Smoking risk assessment performed?: Yes Alcohol Intake: current Alcohol Intake frequency: holidays/special occasions only Drug use: Never Substance use type: does not use current occupation: [employer] Do you feel safe at home: Yes Do you feel safe in your relationship?: Yes Female Reproductive History Menstrual control method: permanent sterilization History History 1 Para Hx # Term Pregnancies 1 Multiple births Hx # Pregnancies Ectopic pregnancies AB induced Hx Number of Living Children 1 AB spontaneous Exam Const General: cooperative HENMT Mouth: moist mucous membranes Eyes Conjunctivae: normal conjunctivae Sclera: normal sclerae Neck Neck: trachea midline and supple Resp Auscultation: clear to auscultation bilaterally, no rales, no rhonchi and no wheezes Cardio Rate: regular rate and not tachycardic Rhythm: regular rhythm GI Palpation: soft, not firm, no guarding, no masses, not rigid and nontender Skin General skin exam: no rashes or lesions noted Neuro General: patient alert, patient awake, patient oriented x3 and tone normal Extrem General: no calf tenderness and no edema Psych Appearance: grossly normal Mental Status: mental status grossly normal Mood: anxious mood Course Vital Signs Vital signs: Vital Signs Temperature 36.1 C L 03/18/21 10:19 Pulse 92 H 03/18/21 10:19 Respiratory Rate 18 03/18/21 10:19 Blood Pressure 148/78 H 03/18/21 10:19 Pulse Oximetry 100 03/18/21 10:19 Temperature 36.1 C L 03/18/21 10:19 Temperature Source Temporal Artery Scan 03/18/21 10:19 Pulse 81 03/18/21 10:46 Pulse 76 03/18/21 10:46 Respiratory Rate 16 03/18/21 10:46 Respiratory Effort Non-Labored 03/18/21 10:24 Respiratory Depth Normal 03/18/21 10:24 Respiratory Pattern Normal 03/18/21 10:24 Blood Pressure 119/91 H 03/18/21 10:46 Blood Pressure Mean 96 03/18/21 10:46 Blood Pressure Position Sitting 03/18/21 10:19 Pulse Oximetry 100 03/18/21 10:46 Oxygen Delivery Method Room Air 03/18/21 10:19 Oxygen Flow Rate 0 03/18/21 10:19 Lab/Test Results Lab/Test Results: Laboratory Tests Range/Units 03/18/21 10:30 WBC (4.4-10.8) 10^3/uL 7.99 RBC (3.93-5.22) 10^6/uL 4.62 Hgb (11.2-15.7) g/dL 13.5 Hct (36.0-46.0) % 41.8 MCV (80-95) fL 90.5 MCH (27.0-33.0) pg 29.2 MCHC (32.0-36.0) % 32.3 RDW (11.7-14.6) % 12.8 Plt Count (130-400) 10^3/uL 250 MPV (8.0-11.0) fL 11.4 H Immature Gran % 0.3 Neutrophils % 72.4 Lymphocytes % 20.3 Monocytes % 5.9 Eosinophils % 0.8 Basophils % 0.3 Nucleated RBC % % 0 Absolute Neutrophils (1.2-6.7) 10^3/uL 5.80 Absolute Lymphocytes (1.2-3.4) 10^3/uL 1.62 Absolute Monocytes (0.1-0.8) 10^3/uL 0.47 Absolute Eosinophils (0.0-0.7) 10^3/uL 0.06 Absolute Basophils (0.0-0.2) 10^3/uL 0.02
[2021-03-18] MEDS: ALPRAZolam 0.25 MG TAB PO (10:54)
[2021-03-18 10:55] LABS: ALT 23 U/L (14-59); AST 11 U/L (15-37); Albumin 3.9 g/dL (3.4-5.0); Alkaline Phosphatase 84 U/L (46-116); Anion Gap 11.5 mmol/L (3-11); BUN 13 mg/dL (7-18); Bilirubin, Total 0.5 mg/dL (0.2-1.0); CO2 24.5 mmol/L (21.0-32.0); CREATININE 0.8 mg/dL (0.55-1.02); Calcium 8.9 mg/dL (8.5-10.1); Chloride 104 mmol/L (98-107); Glucose 96 mg/dL (74-106); Potassium 4.1 mmol/L (3.5-5.1); Sodium 140 mmol/L (136-145); Total Protein 7.3 g/dL (6.4-8.2); Troponin I < 0.05 ng/mL (<0.06)
--- NOTE | 2021-03-18 12:38 | NUR.NOTE ---
1235 second troponin drawn ad sent per Dr. Rubi request.
[2021-03-18] MEDS: Aspirin 325 MG TAB PO (12:51)
[2021-03-18 13:00] LABS: Troponin I < 0.05 ng/mL (<0.06)
[2021-03-18 13:26] LABS: Source Nasal/Nares
[2021-03-18 14:25] LABS: COVID-19 PCR Negative (Negative)
--- NOTE | 2021-03-18 14:51 | HPE_ITS ---
Date of service: 03/18/21 Time of Service: 14:51 Assessment and Plan Assessment and plan (1) Chest pain: Status: Acute Assessment and plan: Admitted for chest pain with a good story and positive family history for possible coronary artery disease. Will rule out with serial troponin levels and monitor on telemetry in observation status. (2) Abnormal EKG: Status: Acute Assessment and plan: Her EKG does not show acute changes but does show poor R wave progression in the anterior leads which could represent a prior anterior infarct. She does not show any evidence of congestive heart failure or sequela I of chronic heart disease. (3) Anxiety: Status: Chronic Assessment and plan: She admits to an underlying anxiety disorder for which she does not take any regular medications. She does have a history of depression. History of Present Illness History of Present Illness Chief Complaint: Chest pain rule out RI Narrative: 45-year-old woman presented to the emergency room with dizziness and diaphoresis while getting out of the shower. She was complaining of left-sided chest pain and right neck pain. The pain has been intermittent and seem to have responded to a sublingual nitroglycerin tablet. In the ED her EKG was normal, initial 2 troponins were normal, chest x-ray normal. Because of a strong positive family history of RI in her father at age less than 50 she is being admitted for observation and rule out RI. Review of Systems Narrative: Overall review of systems is negative other than as noted in HPI. Specifically she is not having GI or symptoms. [facility] Medical History Globus sensation (03/11/18) Obesity, unspecified (08/30/15) Surgical History section Cholecystectomy History of surgery on left wrist History of tonsillectomy Family History Father Heart disease Social History Smoking/Tobacco Use Status: Former Tobacco Use Quit Date: 09/10/19 Smoking risk assessment performed?: Yes Alcohol Intake: current Alcohol Intake frequency: holidays/special occasions only Drug use: Never Substance use type: does not use current occupation: [employer] Do you feel safe at home: Yes Do you feel safe in your relationship?: Yes Female Reproductive History Menstrual control method: permanent sterilization History History 1 Para Hx # Term Pregnancies 1 Multiple births Hx # Pregnancies Ectopic pregnancies AB induced Hx Number of Living Children 1 AB spontaneous Meds Allergies and Home Medications Allergies Allergy/AdvReac Type Severity Reaction Status Date / Time trazodone AdvReac Mild Other (See Verified 03/18/21 10:21 Comment) SSRIs AdvReac Severe Other (See Uncoded 03/18/21 10:21 Comment) Home Medications Medication Instructions Recorded Confirmed Type Lactobacillus acidophilus 10,000 mmu cells PO DAILY 06/28/20 03/18/21 History [Probiotic] gabapentin 600 mg PO QHS 03/18/21 03/18/21 History hydroxyzine HCl 25 mg PO DAILY PRN 03/18/21 03/18/21 History mirtazapine 7.5 mg PO DAILY PRN 03/18/21 03/18/21 History Exam Narrative Exam Narrative: On exam she appears in no apparent distress. She is fully alert and coherent. She is able to provide a good history. She has no respiratory difficulties. Her lung exam is clear to auscultation on the right and left anterior lung [place]. Her heart exam reveals a regular rate and rhythm without apparent murmur. There is no palpable heave or thrill. Her abdomen is quite morbidly obese but overall nontender and without discernible masses. The lower extremities showed no significant pitting edema. They appear to be well perfused on the right and left. Neurologically she is able to attend well. She shows no focal deficit. She is moving upper and lower extremities well with good purposeful movements. She has no facial asymmetry. Results Imaging Chest x-ray: report reviewed (Normal) EKG: report reviewed (Sinus at 79 bpm. Question of an old anterior infarct with poor R wave progression) Labs Result diagrams: 03/18/21 10:30 03/18/21 10:30 Labs: Laboratory Results - last 24 hr 03/18/21 03/18/21 03/18/21 10:30 10:30 12:35 WBC 7.99 RBC 4.62 Hgb 13.5 Hct 41.8 MCV 90.5 MCH 29.2 MCHC 32.3 RDW 12.8 Plt Count 250 MPV 11.4 H Immature Gran % 0.3 Neutrophils % 72.4 Lymphocytes % 20.3 Monocytes % 5.9 Eosinophils % 0.8 Basophils % 0.3 Nucleated RBC % 0 Absolute Neutrophils 5.80 Absolute Lymphocytes 1.62 Absolute Monocytes 0.47 Absolute Eosinophils 0.06 Absolute Basophils 0.02 Sodium 140 Potassium 4.1 Chloride 104 Carbon Dioxide 24.5 Anion Gap 11.5 H BUN 13 Creatinine 0.8 Estimated GFR/1.73 m2 >= 60.00 Glucose 96 Calcium 8.9 Total Bilirubin 0.5 AST 11 L ALT 23 Alkaline Phosphatase 84 Troponin I < 0.05 < 0.05 Total Protein 7.3 Albumin 3.9 COVID-19 Source SARS-CoV-2 (PCR) 03/18/21 13:20 WBC RBC Hgb Hct MCV MCH MCHC RDW Plt Count MPV Immature Gran % Neutrophils % Lymphocytes % Monocytes % Eosinophils % Basophils % Nucleated RBC % Absolute Neutrophils Absolute Lymphocytes Absolute Monocytes Absolute Eosinophils Absolute Basophils Sodium Potassium Chloride Carbon Dioxide Anion Gap BUN Creatinine Estimated GFR/1.73 m2 Glucose Calcium Total Bilirubin AST ALT Alkaline Phosphatase Troponin I Total Protein Albumin COVID-19 Source Nasal/Nares SARS-CoV-2 (PCR) Negative Last Vital Signs Temp 36.5 C 03/18/21 13:50 Pulse 61 03/18/21 13:50 Resp 18 03/18/21 13:50 BP 133/81 03/18/21 13:50 Pulse Ox 100 03/18/21 13:50
[2021-03-18] MEDS: Acetaminophen 325 MG TAB 650 MG PO (16:15)
[2021-03-18] MEDS: Enoxaparin 40 MG/0.4 ML SYR SC (16:16)
[2021-03-18 16:45] LABS: Troponin I < 0.05 ng/mL (<0.06)
[2021-03-18 21:06] LABS: Troponin I < 0.05 ng/mL (<0.06)
[2021-03-19 03:49] VITALS: BP 111/58; PULSE 58; RESP 14; TEMP 36.4; O2SAT 98
[2021-03-19 07:26] VITALS: BP 108/69; PULSE 64; RESP 17; TEMP 36.3; O2SAT 98
[2021-03-19 07:28] VITALS: BP 116/76; BP 121/80; BP 125/79; PULSE 61; PULSE 73; PULSE 82
[2021-03-19] MEDS: Prochlorperazine 10 MG/2 ML VIAL 5 MG IVP (08:06)
[2021-03-19 08:07] VITALS: PULSE 64
[2021-03-19] MEDS: Normal Saline 50 ML 200 ML (08:07)
[2021-03-19] MEDS: diazePAM 5 MG TAB PO (10:53)
[2021-03-19 11:22] VITALS: BP 137/82; PULSE 60; RESP 18; TEMP 37.4; O2SAT 99
--- NOTE | 2021-03-19 12:17 | DSE_ITS ---
Date of service: 03/19/21 Time of Service: 12:17 DS: Diagnosis Discharge Diagnosis (1) Chest pain: Start date: 03/19/21 Start time: 12:18 Status: Resolved Asessment and Plan: Resolved. Ambulatory stress with staff negative no chest pain while walking loops around the unit with normal heart rate. EKG normal CP has been resolved since admission Trops have been negative. Therefore she is comfortable being discharged home She has an appt with her PCP on Sun (2) Anxiety: Start date: 03/19/21 Start time: 12:28 Status: Chronic Asessment and Plan: She did have dizziness this am. She does state this is a symptom of her dizziness. She was given a valium with good relief which helped both relieve her dizziness and anxiety. above discussed with Dr. Agustin Discharge Plan Disposition Patient Disposition: HOME Condition: Improving Discharge Details Reason For Visit: Chest Pain Admit Date/Time: 03/18/21 13:17 Admit Provider: Ras Miner Attending Provider: Ras Miner Primary Care Provider: Yue Johnson Hospital Course Hospital Course: 45-year-old woman presented to the emergency room with dizziness and diaphoresis while getting out of the shower. She was complaining of left-sided chest pain and right neck pain. The pain has been intermittent and seem to have responded to a sublingual nitroglycerin tablet. In the ED her EKG was normal, chest x-ray normal. Troponins normal. Today she c/o dizziness further stating that this is an indication of her anxiety and what happens when she becomes anxious. She was given valium 5 mg for her dizziness. Ambulated around the unit for 2 loops, no chest pain or sob. Dizziness which is part of her anxiety subsided with valium. She has not had any CP since last night. She has an appt to see her PCP on Sun. she feels well enough to go home. Therefore she is being discharged home. Any further work up can be done as an outpatient. Home Meds and New Rx's Prescriptions: Continued Probiotic 10 billion cell Capsule 10,000 mmu cells PO DAILY RF: 0 gabapentin 600 mg tablet 600 mg PO QHS RF: 0 hydroxyzine HCl 25 mg tablet 25 mg PO DAILY PRNRF: 0 mirtazapine 7.5 mg tablet 7.5 mg PO DAILY PRNRF: 0 Discharge Instructions Instructions: Chest Pain (DC), Noncardiac Chest Pain (DC), Anxiety (DC) Additional Instructions: Follow up with your PCP as scheduled for Wed All your tests were negative. Activity:: Activity as Tolerated Equipment/Supplies:: No Equipment Needed Diet:: As Tolerated Discharge Orders Discharge Orders: Discharge Order (Routine); Ordered 03/19/21 Ordered By: Lyndsay Majano DS: Summary Time Spent with Patient providing and/or coordinating discharge services: Less than 30 minutes Status at Discharge Functional status at discharge: independent ambulation Overall status at discharge: patient is back to baseline Mental Status: mental status grossly normal Speech and Movement: speech and movement normal Mood: congruent mood Affect: normal affect Exam Narrative Exam Narrative: On exam she appears in no apparent distress. She is fully alert and coherent. She has no respiratory difficulties. Her lung exam is clear to auscultation on the right and left anterior lung azevedo. Her heart exam reveals a regular rate and rhythm without apparent murmur. There is no palpable heave or thrill. Her abdomen is quite morbidly obese but overall nontender and without discernible masses. The lower extremities showed no significant pitting edema. They appear to be well perfused on the right and left. Neurologically she is able to attend well. She shows no focal deficit. She is moving upper and lower extremities well with good purposeful movements. She has no facial asymmetry. Psych Mental Status: mental status grossly normal Speech and Movement: speech and movement normal Mood: congruent mood Affect: normal affect DS: Data Vitals/I&O Vitals and I&O: Vital Signs Temperature 37.4 C 03/19/21 11:22 Temperature Source Temporal Artery Scan 03/19/21 11:22 Pulse 60 03/19/21 11:22 Pulse Rhythm Regular 03/19/21 08:18 Pulse 70 03/18/21 13:31 Respiratory Rate 18 03/19/21 11:22 Respiratory Effort Non-Labored 03/19/21 08:18 Respiratory Depth Normal 03/19/21 08:18 Respiratory Pattern Normal 03/19/21 08:18 Blood Pressure 137/82 03/19/21 11:22 Blood Pressure Mean 109 03/18/21 13:31 Blood Pressure Position Sitting 03/18/21 10:19 Pulse Oximetry 99 03/19/21 11:22 Oxygen Delivery Method Room Air 03/19/21 11:22 Oxygen Flow Rate 0 03/19/21 11:22 Pain Level 0 03/19/21 11:22 Intake & Output 03/18/21 03/19/21 03/19/21 23:59 11:59 23:59 Output Total 1500 / 1500 Balance -1500 / -1500 Output: Urine 1500 / 1500 Other: Urine Color Yellow Straw Urine Appearance Clear Clear Urine Odor None Normal Stool Characteristics Formed Voiding Methods Toilet Toilet Data Completed and Pending Completed studies during hospitalization [Text1]: Exam(s) XR CHEST 2V PA LATERAL EXAM: XR CHEST 2V PA LATERAL CLINICAL HISTORY: chest pain TECHNIQUE: 2D digital imaging was performed. COMPARISON: No exams were available for comparison FINDINGS: MEDIASTINUM: Normal. HEART: Normal. PULMONARY VASCULATURE: Normal. LUNGS: Clear. PLEURAL SPACE: No pleural effusion or pneumothorax. BONE:Unremarkable for age. IMPRESSION: No acute abnormality. Labs on day of discharge: Labs from last 24 hours 03/18/21 03/18/21 03/18/21 20:42 16:18 13:20 Troponin I < 0.05 < 0.05 COVID-19 Source Nasal/Nares SARS-CoV-2 (PCR) Negative 03/18/21 12:35 Troponin I < 0.05 COVID-19 Source SARS-CoV-2 (PCR) [facility] Medical History Globus sensation (03/11/18) Obesity, unspecified (08/30/15) Surgical History section Cholecystectomy History of surgery on left wrist History of tonsillectomy Family History Father Heart disease Social History Smoking/Tobacco Use Status: Former Tobacco Use Quit Date: 09/10/19 Smoking risk assessment performed?: Yes Alcohol Intake: current Alcohol Intake frequency: holidays/special occasions only Drug use: Never Substance use type: does not use current occupation: [employer] Do you feel safe at home: Yes Do you feel safe in your relationship?: Yes Female Reproductive History Menstrual control method: permanent sterilization History History 1 Para Hx # Term Pregnancies 1 Multiple births Hx # Pregnancies Ectopic pregnancies AB induced Hx Number of Living Children 1 AB spontaneous
[2021-03-19 15:08] VITALS: PULSE 70
== END 2021-03-19 13:58 | disposition home or self-care (01) ==
LOC: ER 10:29 → MS 13:55
PROVIDERS: Admitting Provider Family Medicine; Emergency Provider Student in an Organized Health Care Education/Training Program; PCP Physician Assistant Medical; Visit Provider Family Medicine
DX: R07.9 Chest pain, unspecified (principal); R94.31 Abnormal electrocardiogram [ECG] [EKG]; F41.9 Anxiety disorder, unspecified; Z20.822 Contact with and (suspected) exposure to COVID-19; R42 Dizziness and giddiness; R61 Generalized hyperhidrosis
CPT/HCPCS: 36415; 80053; 87635; 93005; 96374; 99285; J1650; 71046; 84484; 85025; 93010; 99217; 99219; G0378; J0780

== ENCOUNTER 2021-03-28 01:19 | Outpatient (CLI) | payer BC, SELFPAY ==
--- NOTE | 2021-03-28 10:40 | DI.MRI_ITS ---
Exam(s) MR LUMBAR SPINE WO EXAM: MR LUMBAR SPINE WO CLINICAL HISTORY: LOW BACK PAIN, M54.5. TECHNIQUE: Multiplanar multisequence MRI of the Lumbar spine was performed. COMPARISON: CR XR LUMBAR SPINE COMPLETE from 02/25/2021 FINDINGS: Plain films 02/25/2021 reviewed Conus medullaris is at normal level (T12-L1). There is no evidence of conus mass nor subjacent clump ing of intrathecal nerve roots to suggest arachnoiditis. The distal thecal sac appears unremarkable. There is no evidence of Tarlov intrasacral cysts nor other significant findings within the sacral can al Bones:There are no fractures nor ominous osseous lesions in the lumbar vertebral bodies and visualize d sacrum. With respect to the individual levels... T12-L1: Unremarkable L1-2: Normal disc height and signal. No disc herniation nor central canal stenosis.No foraminal steno sis L2-3: Normal disc height. Modic type 2 sub endplate fatty marrow changes in the lower aspect of L2 e vident. No disc herniation nor central canal stenosis.No foraminal stenosis.No facet arthropathy. L3-4: Mild decreased disc height. Symmetrical annular bulging without a dominant disc herniation. N o central canal stenosis.No foraminal stenosis.No facet arthropathy. L4-5: Normal disc height and signal. No disc herniation. No central canal stenosis. No foraminal s tenosis. No facet arthropathy. L5-S1: Normal disc height and signal. No disc herniation. No central canal stenosis. No foraminal stenosis. Soft tissues: paraspinal soft tissues appear unremarkable. IMPRESSION: 1. Minimal findings. No evidence of significant disc herniation. No central canal stenosis. No for aminal stenosis. No significant facet arthropathy. 2. Mild Modic type 2 sub endplate fatty marrow changes in the inferior aspect of L2 vertebral body, t his adjacent to a small shallow Schmorl's node invagination at this level. DATA REPOSITORY:
== END 2021-03-28 01:39 ==
PROVIDERS: PCP Physician Assistant Medical; Visit Provider Physician Assistant Medical
DX: M54.5 Low back pain (principal)
CPT/HCPCS: 72148

== ENCOUNTER 2021-04-11 00:45 | Outpatient (CLI) | payer BC, SELFPAY ==
--- NOTE | 2021-04-11 09:00 | ETT_ITS ---
APPROVED REPORT Exam: Exercise Treadmill Patient Location: Out-Patient Room/Bed: Stress Nurse: Sloane De La Rosa RN Ordering Provider:DANNIE LEON, Contact Number: [phone] BMI: 46.47 Baseline Rhythm: Sinus Arrhythmia Indications: Atypical chest pain. Medical History Medical History: Obesity, Anxiety, Chest pain. Cardiac Medications: None. Allergies: Trazadone, SSRI's Cardiac Risk Factors: FHX of CAD, Smoking (former) Previous Cardiac Procedures: None. Pretest Chest Pain Characteristics: No chest pain Exercise History: Sedentary Physical Disabilities: Hips Lung Sounds: Clear to auscultation Heart Sounds: Regular Stress Test Details Test: Exercise stress testing was performed using a Juan protocol. Rest Stress HR Resting HR Supine: 64 bpm Max Heart Rate (APMHR): 176 bpm Resting HR Standin bpm Target HR (85% APMHR): 149 bpm Max HR Achieved: 182 bpm % of APMHR: 103 Recovery HR: 98 bpm HR response to stress: Normal HR response to stress BP Resting BP Supine: 130/82 mmHg Resting BP Standin/80 mmHg Max BP: 166/70 mmHg Recovery BP: 138/76 mmHg BP response to stress: Normal blood pressure response to stress. ECG Resting ECG: Sinus arrhythmia Ectopy: None. Stress ECG: Sinus Tachycardia ST Change: No significant ST segment changes noted Arrhythmia: occasional PAC Recovery ECG: Sinus Rhythm Recovery ST Change: No significant ST segment changes noted Recovery Arrhythmia: occasional PAC Clinical Reason for Termination: Fatigue Stress Symptoms: Dizziness with cessation of exercise. Exercise duration: 7 min17 sec Highest Stage Reached: Stage 3: 3.4 mph at 14% grade. Exercise capacity: 9.02 METs Quiñones Treadmill Score: 7 Rate Pressure Product: 98180 Stress ECG Conclusion 1. The patient exercised for 7 minutes (9 METS). Exercise was stopped due to fatigue. 2. The patient no symptoms suggestive of ischemia. 3. There is no evidence of ischemia on the ECG portion of the exam. Quiñones Treadmill Score is 7 which is Low risk. Stress Test Summary STAGE Time (mins) Speed (mph) Grade (%) HR BP SYMPTOMS METS Supine 64 130/82 Standing 66 128/80 1 3 1.7 10 117 134/76 4.6 2 6 2.5 12 152 150/72 7 1 min recovery 141 166/70 Dizziness reported. 3 min recovery 105 148/70 6 min recovery 98 138/76
== END 2021-04-11 01:05 ==
PROVIDERS: PCP Physician Assistant Medical; Visit Provider Physician Assistant Medical
DX: R07.89 Other chest pain (principal); E66.9 Obesity, unspecified; F41.9 Anxiety disorder, unspecified; Z87.891 Personal history of nicotine dependence; Z82.49 Family history of ischemic heart disease and other diseases of the circulatory system
CPT/HCPCS: 93017

== ENCOUNTER 2021-08-29 00:52 | Outpatient (CLI) | payer BC, SELFPAY ==
--- NOTE | 2021-08-29 15:28 | DI.MAMMO_ITS ---
Exam(s) MAMMO SCREENING EXAM: MAMMO SCREENING CLINICAL HISTORY: screening TECHNIQUE: Mammograms were interpreted according to the usual protocol including computer analysis w Bit Cauldron CAD system, tomosynthesis and C-view imaging. COMPARISON: 2019 FINDINGS: The breasts are composed of mainly fatty density , Breast Density category A. No suspicious masses or suspicious microcalcifications are seen. No skin thickening or abnormal axillary lymph nodes are seen. There has been no significant change from prior exams. IMPRESSION: BI-RADS Category 1, Negative mammogram Yearly screening mammography is recommended. Breast Density - Category A, fatty density. A negative radiographic report should not delay biopsy if a dominant or clinically suspicious mass is present. Up to ten percent of cancers are not identified on mammography. A negative report may reinforce clinical impression. Adenosis and dense breasts may obscure an underlying neoplasm. False positive reports average 6 to 10%. Patient will receive a letter notifying them of these results.
== END 2021-08-29 01:12 ==
PROVIDERS: PCP Physician Assistant Medical; Visit Provider Nurse Practitioner Family
DX: Z12.31 Encounter for screening mammogram for malignant neoplasm of breast (principal)
CPT/HCPCS: 77063; 77067

== ENCOUNTER 2021-12-07 01:40 | Outpatient (CLI) | payer OTHER, SELFPAY ==
[2021-12-07 08:51] VITALS: BP 146/94; PULSE 69; RESP 16; TEMP 36.6; O2SAT 100
--- NOTE | 2021-12-07 09:00 | DI.US_ITS ---
Exam(s) US PAIN CLINIC NEEDLE GUIDANCE EXAM: US PAIN CLINIC NEEDLE GUIDANCE CLINICAL HISTORY: MERALGIA PARESTHETICA OF BILATERAL LOWER EXTREMITIES TECHNIQUE: Ultrasound performed using standard protocol. COMPARISON: US US PELVIS TRANSVAGINAL from 01/13/2021 FINDINGS: Ultrasound guidance was utilized by Dr. Nobles during bilateral hip injections. Please see Dr. Nobles's procedure note. IMPRESSION: DATA REPOSITORY:
--- NOTE | 2021-12-07 09:32 | PDOC.PAIN_ITS ---
Pain Clinic Procedure Note Procedure Note Procedure Note: ULTRASOUND GUIDED Bilateral lateral femoral cutaneous nerve blocks Pre-Procedural Evaluation: Brittany Gunn has been referred to the [facility] for an Ultrasound Guided Bilateral lateral femoral cutaneous nerve blocks for a chief complaint of bilateral anterior thigh pain. Pre-procedure Pain Score: 4/10 Dx: Meralgia Paresthetica Patient was interviewed and the medical record reviewed. There were no medical, pharmacologic, radiographic, or other structural contraindications to preforming an ultrasound guided injection. Risks and expected side effects as well as potential benefits of the procedure were reviewed. The patient consent form was signed and witnessed. Standard time-out procedure was performed. The use of direct ultrasound visualization of the needle (rather than a non- guided injection) was required to increase patient safety by excluding inadvertent intramuscular, intratendinous, or intraneural needle placement and minimizing bleeding by avoiding osteochondral or vascular injury from the needle. Additionally, the increased accuracy of placement may increase clinical effectiveness and will allow higher diagnostic specificity when evaluating effectiveness of this injection. Procedure Description: The patient was placed in the supine position and automated blood pressure cuff and pulse oximeter applied for monitoring during the procedure and recorded in the medical record. Pre-injection ultrasound scanning of the area of interest was performed using linear transducer, identifying relevant anatomy, landmarks, and neurovascular structures allowing for optimal needle path. The site was then prepared in the usual sterile fashion, using thorough Chlorhexadine preparation of the skin and sterile draping. The same ultrasound transducer was then passed into the sterile field using sterile probe cover and sterile ultrasound gel. The injection target was again visualized. Skin and subcutaneous tissues were anesthetized with 4 mL of 1% Lidocaine. A 21G Pajunk 4 Ultrasound needle was placed under live ultrasound guidance, using an in-plane approach, to the target area. After visualization of the needle tip at the target area, 5 mg of Dexamethasone (10 mg/c) was delivered after negative aspiration for blood. This was followed by 4 cc of 2% Lidocaine. The needle was removed without difficulty. Ultrasound images were captured and stored for documentation purposes. Post-procedure Pain Score: 3/10 Vital signs were stable throughout the procedure and were as recorded in the docflowsheet by the nursing staff. Follow up plans and appointments were discussed with the patient.Post procedure instruction was given as documented in nursing documentation and having met discharge criteria, they were discharged from the [facility] Management [facility]. COMMENTS: Extra time was required for this procedure secondary to her obesity.. Stephan Nobles DO, MPH [facility]
[2021-12-07] MEDS: Lidocaine 2% Pres-Free 5 ML VIAL IJ (09:41)
[2021-12-07] MEDS: Dexamethasone Sod. Phos./Pres-Free 10 MG/ML VIAL IJ (09:41)
[2021-12-07 09:44] VITALS: PULSE 64; O2SAT 99
== END 2021-12-07 02:00 ==
PROVIDERS: PCP Physician Assistant Medical; Visit Provider Preventive Medicine Occupational Medicine
DX: G57.13 Meralgia paresthetica, bilateral lower limbs (principal)
CPT/HCPCS: 64450; 76942

== ENCOUNTER 2021-12-21 01:00 | Outpatient (CLI) | payer OTHER, SELFPAY ==
--- NOTE | 2021-12-21 09:23 | DI.RAD_ITS ---
Exam(s) XR HIP RT COMPLETE AP PELVIS EXAM: XR HIP RT COMPLETE AP PELVIS INDICATION: RT HIP PAIN, M25.551, ? HIP BURSITIS. COMPARISON: CR LUMBAR SPINE COMPLETE from 04/24/2017 TECHNIQUE: 2D digital imaging was performed. Two views. FINDINGS: Hip joint spaces are well maintained. There is a small calcification adjacent to the right superior acetabulum. This was present on prior lumbar spine plain film. Small calcifications are seen adjace nt to both greater trochanters. Mild spurring at the inferior SI joints. IMPRESSION: Mild degenerative changes. DATA REPOSITORY: RADIATION DOSE DELIVERED:
== END 2021-12-21 01:20 ==
PROVIDERS: PCP Physician Assistant Medical; Visit Provider Physician Assistant Medical
DX: M25.551 Pain in right hip (principal); M25.851 Other specified joint disorders, right hip; M53.3 Sacrococcygeal disorders, not elsewhere classified
CPT/HCPCS: 73502

== ENCOUNTER 2022-03-02 03:25 | Outpatient (CLI) | payer OTHER, SELFPAY ==
[2022-03-02 08:35] LABS: HCT 40.1 % (36.0-46.0); HGB 12.9 g/dL (11.2-15.7); MCH 29.1 pg (27.0-33.0); MCHC 32.2 % (32.0-36.0); MCV 91 fL (80-95); MPV 11.1 fL (8.0-11.0); Platelet Count 247 10^3/uL (130-400); RBC 4.43 10^6/uL (3.93-5.22); RDW 12.8 % (11.7-14.6); RDW-SD 42.6 fL; WBC 6.97 10^3/uL (4.4-10.8)
[2022-03-02 11:31] LABS: ALT 19 U/L (14-59); AST 11 U/L (15-37); Albumin 3.4 g/dL (3.4-5.0); Alkaline Phosphatase 76 U/L (46-116); Bilirubin, Direct 0.1 mg/dL (0.0-0.2); Bilirubin, Total 0.4 mg/dL (0.2-1.0); CREATININE 0.7 mg/dL (0.55-1.02); TSH 0.85 uIU/mL (0.36-3.74); Total Protein 6.8 g/dL (6.4-8.2)
[2022-03-02 17:19] LABS: Hemoglobin A1C 5.7 % (<5.7)
== END 2022-03-02 03:26 | disposition home or self-care (01) ==
LOC: LBO 03:25
PROVIDERS: PCP Physician Assistant Medical; Visit Provider Physician Assistant
DX: E66.01 Morbid (severe) obesity due to excess calories (principal); Z68.42 Body mass index [BMI] 45.0-49.9, adult
CPT/HCPCS: 36415; 80076; 85027; 82565; 83036; 84443

== ENCOUNTER 2022-04-13 11:05 | Outpatient (CLI) | payer OTHER, SELFPAY ==
--- NOTE | 2022-04-13 06:00 | DI.RAD_ITS ---
Exam(s) XR PAIN CLINIC SACRIOILIAC 2V EXAM: XR PAIN CLINIC SACRIOILIAC 2V CLINICAL HISTORY: Dx: Sacroiliac Joint Dysfunction. TECHNIQUE: Fluoroscopy was provided for the referring physician for guidance with performing pain cl inic injection procedure. COMPARISON: No exams were available for comparison FINDINGS: Please see procedure note for details. Fluoro time: 25.3 seconds RADIATION DOSE DELIVERED: Ka,r=14.6 mGy
[2022-04-13 11:13] VITALS: BP 139/79; PULSE 69; RESP 20; TEMP 36.9; O2SAT 100
[2022-04-13 11:57] VITALS: BP 140/78; PULSE 62; RESP 16; O2SAT 100
[2022-04-13] MEDS: methylPREDNISolone ACETATE 80 MG/ML VIAL IJ (11:59)
[2022-04-13] MEDS: Omnipaque 240 MG/ML 50 ML BTL IJ (11:59)
--- NOTE | 2022-04-13 12:43 | PDOC.PAIN ---
Pain Clinic Procedure Note Procedure Note Procedure Note: INTRA-ARTICULAR SI JOINT INJECTION Brittany Gunn has been referred to the [facility] Management [facility] for intra-articular SI joint injection. COMMENTS: She was seen in the office by me on 03/02/22. Her pre-procedure pain VAS was 5/10. Dx: Right sacroiliac joint dysfunction Patient was interviewed and the medical record reviewed. There were no medical, pharmacologic, radiographic or other structural contraindications to attempting fluoroscopically guided intra-articular SI joint injection. Risks and expected side effects as well as potential benefit of the procedure were reviewed and voiced concerns addressed. The printed consent form was signed and witnessed. Standard time-out procedure was performed. Patient was placed in the prone position on the fluoroscopy table and automated blood pressure cuff and pulse oximeter applied. The skin entry point for approaching the right SI joint was identified under the most advantageous fluoroscopic view and marked. Following thorough Chlorhexadine preparation of the skin and draping and 1% lidocaine infiltration of the skin entry point and subcutaneous tissues, a 22 gauge 3.5 spinal needle was placed under fluoroscopic guidance into the right SI joint was identified under the most advantageous fluoroscopic view and marked. Intra-articular placement was confirmed by a clear arthrogram resulting from the injection of 0.25ml Omnipaque 240, 1ml 1% lidocaine, and 40mg Depomedrol were injected intra-articularily with an initial reproduction of a significant component of the usual pain. Vital signs were stable throughout the procedure and were as recorded in the docflowsheet by the nursing staff. If given, dosages of intravenous drugs for anxiolysis and analgesia were documented in MAR. Follow up plans and appointments were discussed with the patient. Post procedure instruction was given as documented in nursing documentation and having met discharge criteria, and was discharged from the Pain Management Center. COMMENTS: Post-procedure pain VAS was 0/10. Stephan Nobles DO, MPH [facility]Pain Management [facility] CC: Yue Johnson
== END 2022-04-13 11:06 | disposition home or self-care (01) ==
LOC: PC 11:05
PROVIDERS: PCP Physician Assistant Medical; Visit Provider Preventive Medicine Occupational Medicine
DX: M53.3 Sacrococcygeal disorders, not elsewhere classified (principal)
CPT/HCPCS: 27096; 72200; J1040; Q9967

== ENCOUNTER 2022-10-30 01:00 | Outpatient (CLI) | payer OTHER, SELFPAY ==
--- NOTE | 2022-10-30 16:00 | DI.MAMMO_ITS ---
Exam(s) MAMMO SCREENING EXAM: MAMMO SCREENING CLINICAL HISTORY: screening TECHNIQUE: Mammograms were interpreted according to the usual protocol including computer analysis w [employer] CAD system, tomosynthesis and C-view imaging. COMPARISON: 2018 and 2020 FINDINGS: The breasts are composed of mainly fatty density , Breast Density category A. No suspicious masses or suspicious microcalcifications are seen. No skin thickening or abnormal axillary lymph nodes are seen. There has been no significant change from prior exams. IMPRESSION: BI-RADS Category 1, Negative mammogram Yearly screening mammography is recommended. Breast Density - Category A, fatty density. A negative radiographic report should not delay biopsy if a dominant or clinically suspicious mass is present. Up to ten percent of cancers are not identified on mammography. A negative report may reinforce clinical impression. Adenosis and dense breasts may obscure an underlying neoplasm. False positive reports average 6 to 10%. Patient will receive a letter notifying them of these results.
== END 2022-10-30 01:20 ==
LOC: DI 01:01
PROVIDERS: PCP Physician Assistant Medical; Visit Provider Obstetrics & Gynecology
DX: Z12.31 Encounter for screening mammogram for malignant neoplasm of breast (principal)
CPT/HCPCS: 77063; 77067

== ENCOUNTER 2022-11-20 03:07 | Outpatient (CLI) | payer OTHER, SELFPAY ==
[2022-11-20 07:14] LABS: HCT 42.5 % (36.0-46.0); HGB 13.8 g/dL (11.2-15.7); MCH 29.5 pg (27.0-33.0); MCHC 32.5 % (32.0-36.0); MCV 91 fL (80-95); MPV 12.2 fL (8.0-11.0); Platelet Count 185 10^3/uL (130-400); RBC 4.68 10^6/uL (3.93-5.22); RDW 14.4 % (11.7-14.6); RDW-SD 48.5 fL; WBC 7.13 10^3/uL (4.4-10.8)
[2022-11-20 07:55] LABS: Iron 66 ug/dL (50-170)
[2022-11-20 07:56] LABS: Vitamin D 25 Total 31.9 ng/mL (30-100)
[2022-11-20 07:59] LABS: Ferritin 288 ng/mL (8-252); Vitamin B12 917 pg/mL (193-986)
== END 2022-11-20 03:08 | disposition home or self-care (01) ==
LOC: LBO 03:07
PROVIDERS: PCP Physician Assistant Medical; Visit Provider Physician Assistant
DX: K91.2 Postsurgical malabsorption, not elsewhere classified (principal); E66.01 Morbid (severe) obesity due to excess calories; Z98.84 Bariatric surgery status; Z68.38 Body mass index [BMI] 38.0-38.9, adult
CPT/HCPCS: 36415; 82306; 85027; 82607; 82728; 83540

== ENCOUNTER 2023-10-30 15:57 | Outpatient (REF) | payer OTHER, SELFPAY ==
--- NOTE | 2023-10-30 15:40 | PAPFT_PTH ---
PATIENT: Brittany Gunn LOC: [facility] U#:[id number] AGE/SX: 47/F ROOM: RE10/30/[address]: Aleyda Dos Santos MD : [id number] BED: DIS: 10/30/2023 SPEC #: [id number] RECD: 10/30/23 17:49 STATUS: DALJIT REQ #: [id number] MILLI: 10/30/23 15:[address]: Aleyda Dos Santos DEPT: [facility] Cytology RECD BY: Julianne Fisher ENTERED: 10/30/23 17:49 SP TYPE: PAPFT ROSELIA DR: Yue Johnson Tissues: 1 - CX/ENDOCX FOR PAP SMEARS Procedures: PAP THIN PREP/[facility] Screening HPV DNA PROBE Comments: [id number]
== END 2023-10-30 15:58 | disposition home or self-care (01) ==
LOC: LBN 15:57
PROVIDERS: PCP Physician Assistant Medical; Visit Provider Obstetrics & Gynecology
DX: Z12.4 Encounter for screening for malignant neoplasm of cervix (principal); Z01.419 Encounter for gynecological examination (general) (routine) without abnormal findings
CPT/HCPCS: 88142; 87624